=== PATIENT | male | born 1960 | race Caucasian/White ===

== ENCOUNTER → 2018-05-09 09:19 | Outpatient (CLI) | payer BC ==
[~2018-05-09 09:19] MED LIST: BAYER CHEWABLE81 MG PO; COREG6.25 MG PO; IBUPROFEN200 MG PO; LASIX40 MG PO; OMEPRAZOLE40 MG PO; VOLTAREN100 MG PO
[2018-05-23 11:55] VITALS: BMI 31.9
== END | disposition home or self-care (01) ==
LOC: D.HCCARDIO 09:19
DX: I25.119 Atherosclerotic heart disease of native coronary artery with unspecified angina pectoris (principal)

== ENCOUNTER 2018-05-23 11:21 | Outpatient (CLI) | payer BC ==
[~2018-05-23] VITALS: Ht 182.9 cm; Wt 106.8 kg
--- NOTE | ~2018-05-23 | HEMODYNAMI ---
PATIENT:ESTEPHANIA GOETZ MEDICAL RECORD: [id number] : 56 LOCATION:[facility] ADMISSION DATE: 05/23/18 Generatedon:05/23/201813:41 Patient name: ESTEPHANIA GOETZ Patient #: [id number] SSN: : 1960 Date of study: 05/23/2018 Page: Of Hemodynamic Procedure Report Patient Data Patient Demographics Procedure consent was obtained First Name: ESTEPHANIA Gender: Male Last Name: RANDY : 1960 Patient #: [id number] Age: 58 year(s) Race: Unknown Additional ID: [id number] Contact details [address]: [address] [place] [address] State: [place] City: [place] Zip code: [address] Past Medical History Allergies Allergen Reaction Date Comments Reported Penicillins 05/23/2018 Admission Admission Data Admission Date: 05/23/2018 Admission Time: 11:21 Admit Source: Other Lab Results Lab Result Date: 05/23/2018 Lab Result Time: 11:50 Biochemistry Name Units Result Min Max BUN mg/dl 20 --(----)*- 7 18 Creatinine mg/dl 1 --(--*-)-- 0.6 1.3 CBC Name Units Result Min Max Hematocrit % 45.2 --(-*--)-- 42 54 Hemoglobin g/dl 15.6 --(--*-)-- 13.5 17.5 Procedure Procedure Types Cath Procedure Diagnostic Procedure LHC LHC w/Coronaries Procedure Description Procedure Date Procedure Date: 05/23/2018 Procedure Start Time: 13:32 Procedure End Time: 13:41 Procedure Staff Name Function Robert Main MD Performing Physician Tiana Franco RT Monitor Salbador Lord RT Scrub Abdulkadir Skelton RN Nurse Douglas Pressley RN Hotel Reservationist Procedure Data Cath Procedure Fluoroscopy Diagnostic fluoroscopy Total fluoroscopy Time: 1.3 time: 1.3 min min Diagnostic fluoroscopy Total fluoroscopy dose: 573 dose: 573 mGy mGy Contrast Material Contrast Material Type Amount (ml) Isovue 300 46 Entry Location Entry Primary Successful Side Size Upsize Upsize Entry Closure [place] ccessful Closure Location (Fr) 1 (Fr) 2 (Fr) Remarks Device Remarks Radial Right 6 Fr Mechanical artery Short Compression Estimated blood loss: 5 ml Diagnostic catheters Device Type Used For End Catheter Placement DIAGNOSTIC Macario 110cm LV Angiography 5Fr catheter ([id number]) DIAGNOSTIC Macario 110cm Right Coronary 5Fr catheter ([id number]) Angiography Procedure Complications No complications Procedure Medications Medication Administration Route Dosage Oxygen etCO2 Nasal cannula 2 l/min Lidocaine 2% added to field 20 Heparin Flush Bag added to field 2 bags (1000units/500ml NS) 0.9% NaCl I.V. 100 ml/hr Radial Cocktail I.A. 1 syringe (Verapomil 2mg/Nitro 400mcg/Heparin 1500units) Versed I.V. 1 mg Fentanyl I.V. 50 mcg Versed I.V. 1 mg Fentanyl I.V. 50 mcg Hemodynamics Rest HGB: 15.6 (g/dl) Heart Rate: 65 (bpm) Pressure Samples Time Site Value (mmHg) Purpose Heart Use Rate(bpm) 13:34 LV 85/3,9 EDP 82 13:35 AO 77/52(61) Pullback 86 13:35 LV 96/2,9 Pullback 86 Gradients Valve Time Site 1 Site 2 Mean SEP/DFP Peak To Heart Use (mmHg) (sec/min) Peak Rate (mmHg) (bpm) Aortic 13:35 LV AO 10 21 19 86 96/2,9 77/52(61) Calculations Valve P-P Mean Valve Index Valve Source Name Gradient Area Flow (cm2) Aortic 19 10 19 10 Snapshots Pre Cath Intra NCS Post Cath Vital Signs Time Heart Resp SPO2 etCO2 NIBP (mmHg) Rhythm Pain Sedation Rate (ipm) (%) (mmHg) Status Level (bpm) 13:15:37 68 18 97 0 131/89(106) NSR 0 (11) 10(A) , No pain 13:19:49 70 19 96 38.6 143/80(93) NSR 0 (11) 10(A) , No pain 13:24:03 75 14 96 37.9 130/75(93) NSR 0 (11) 10(A) , No pain 13:28:15 77 18 95 36.3 118/78(90) NSR 0 (11) 10(A) , No pain 13:32:22 66 14 95 37.1 117/76(96) NSR 0 (11) 9(A) , No pain 13:36:34 83 15 94 36.3 109/61(87) NSR 0 (11) 9(A) , No pain 13:40:42 83 14 95 34 113/69(94) NSR 0 (11) 10(A) , No pain Medications Time Medication Route Dose Verified Delivered Reason Notes Effectiveness by by 13:13:06 Oxygen etCO2 2 l/min Robert Buffie used for Nasal Jose David Skelton RN procedure cannula 13:13:12 Lidocaine 2% added 20ml Robert Robert for local to vial Jose David Main MD anesthetic field 13:13:18 Heparin Flush added 2 bags Robert Robert used for Bag to Jose David Main MD procedure (1000units/500ml field NS) 13:13:27 0.9% NaCl I.V. 100 Robert Buffie Per ml/hr Jose David Skelton RN physician 13:24:01 Versed I.V. 1 mg Robert Buffie for sedation Jose David Skelton RN 13:24:07 Fentanyl I.V. 50 mcg Robert Buffie for sedation Jose David Skelton RN 13:26:54 Versed I.V. 1 mg Robert Buffie for sedation Jose David Skelton RN 13:26:58 Fentanyl I.V. 50 mcg Robert Buffie for sedation Jose David Skelton RN 13:33:45 Radial Cocktail I.A. 1 Robert Robert for (Verapomil syringe Jose David Main MD vasodilation 2mg/Nitro 400mcg/Heparin 1500units) Procedure Log Time Note 13:02:28 Informed consent obtained and on chart 13:02:31 Admit Source: Other 13:02:53 Diagnostic Cath status Elective 13:02:55 Douglas Pressley RN sent for patient. Start room use. 13:02:55 Time tracking: Regular hours (M-F 7:00 - 5:00) 13:03:00 Plan of Care:Hemodynamics will remain stable., Cardiac rhythm will remain stable., Comfort level will be maintained., Respiratory function will remain adequate., Patient/ family verbilizes understanding of procedure., Procedure tolerated without complication., Recovers from procedure without complications.. 13:04:40 Lab Result : BUN 20 mg/dl 13::40 Lab Result : Creatinine 1 mg/dl 13::41 Lab Result : Hemoglobin 15.6 g/dl 13::41 Lab Result : Hematocrit 45.2 % 13::43 Lab results completed and on chart. 13:04:49 H&P Date Dictated: 05/23/2018 New H&P dictated by physician.. 13:09:36 Patient received from Pre/Post Procedure Room to CCL 2 Alert and oriented. Tansferred to table in Supine position. 13:09:37 Warm blankets applied, and jose hugger turned on for patient comfort. 13:09:37 Correct patient and procedure confirmed by team. 13:09:38 ECG and BP/O2 sat monitors applied to patient. 13:09:39 Full Disclosure recording started 13:13:06 Oxygen 2 l/min etCO2 Nasal cannula was administered by Abdulkadir Skelton RN; used for procedure; 13:13:12 Lidocaine 2% 20ml vial added to field was administered by Robert Main MD; for local anesthetic; 13:13:18 Heparin Flush Bag (1000units/500ml NS) 2 bags added to field was administered by Robert Main MD; used for procedure; 13:13:27 0.9% NaCl 100 ml/hr I.V. was administered by Abdulkadir Skelton RN; Per physician; 13:14:27 Vital chart was started 13:14:39 Baseline sample Acquired. 13:21:35 Rhythm: sinus rhythm 13:21:39 Pre-procedure instructions explained to patient. 13:21:40 Pre-op teaching completed and patient verbalized understanding. 13:21:43 Family in patients room. 13:21:45 Patient NPO since Midnight. 13:21:52 Patient allergic to Penicillins 13:21:55 Is the patient allergic to Iodine/contrast media? No. 13:21:56 Is patient on blood thinner?No 13:22:13 ACC The patient was administered the following blood thiners within the last 24 hours: ACCAspirin 13:22:16 Patient diabetic? No. 13:22:18 Previous problem with sedation/anesthesia? No ? 13:22:19 Snore? Yes 13:22:20 Sleep apnea? No 13:22:21 Deviated septum? No 13:22:22 Opens mouth fully? Yes 13:22:23 Sticks out tongue? Yes 13:22:25 Airway obstruction? No ? 13:22:26 Dentures? No ? 13:22:28 Pre procedure: right dorsailis pedis pulse 2+ Normal; easily identifiable; not easily obliterated 13:22:31 Modified Randy's test Ulnar < 7 seconds 13:22:32 Patient pain scale 0/10 ?. 13:22:38 IV patent on arrival in left forearm with 0.9% NaCl at [facility]. 13:22:45 Right Radial & Right Groin area was prepped with chlora-prep and draped in sterile fashion 13:22:46 Alarms reviewed by R. N. 13:22:46 Sharps counted by scrub and verified by R.N. 13:22:50 Use device set Radial Dx or PCI 13:22:51 ACIST Syringe (10222) opened to sterile field. 13:22:51 Medline Cath Pack ([id number]) opened to sterile field. 13:22:52 Bag Decanter (2002S) opened to sterile field. 13:22:52 DIAGNOSTIC WIRE .035 260cm J wire (208869) opened to sterile field. 13:22:53 ACIST Hand Control (37936) opened to sterile field. 13:22:53 ACIST Manifold (01016) opened to sterile field. 13:22:56 MBrace Wrist Support ([id number]) opened to sterile field. 13:22:57 SHEATH 6FR Slender (02-3980) opened to sterile field. 13:23:34 Final Timeout: patient, procedure, and site verified with staff and physician. All members of the team are in agreement. 13:23:37 Right Radial site verified by team. 13:23:40 Physical assessment completed. ASA score P 2 - A patient with mild systemic disease as per Robert Main MD. 13:23:43 Sedation plan: IV Moderate Sedation Medication:Versed, Fentanyl 13:24:01 Versed 1 mg I.V. was administered by Abdulkadir Skelton RN; for sedation; 13:24:07 Fentanyl 50 mcg I.V. was administered by Abdulkadir Skelton RN; for sedation; 13::54 Versed 1 mg I.V. was administered by Abdulkadir Skelton RN; for sedation; 13:26:57 Zero performed for pressure channel P1 13::58 Fentanyl 50 mcg I.V. was administered by Abdulkadir Skelton RN; for sedation; 13:32:09 Procedure started. 13:32:14 Local anesthetic to right radial artery with Lidocaine 2% by Robert Main MD.INITIAL ACCESS ONLY 13:32:53 A 6 Fr Short sheath was inserted into the Right Radial artery 13:33:45 Radial Cocktail (Verapomil 2mg/Nitro 400mcg/Heparin 1500units) 1 syringe I.A. was administered by Robert Main MD; for vasodilation; 13:33:52 A DIAGNOSTIC Macario 110cm 5Fr catheter ([id number]) was advanced over the wire and used for LV Angiography. 13:34:53 LV gram done using ESCOBEDO 13::56 Injector settings: Ml/sec: 5, Volume: 15, 13:34:57 LV hemodynamics recorded. 13:35:04 EF : 55 % 13:35:44 A DIAGNOSTIC Macario 110cm 5Fr catheter ([id number]) was advanced over the wire and used for Right Coronary Angiography. 13:37:56 Catheter removed. 13:38:04 Sheath removed intact; hemostasis achieved with Mechanical Compression to the Right Radial artery. 13:38:07 Procedure ended.(Physican Out) 13:38:30 Fluoroscopy time 01.30 minutes. 13:38:47 Fluoroscopy dose: 573 mGy 13:38:47 Flurop Dose total: 573 13:38:49 Contrast amount:Isovue 300 46ml. 13:38:58 Sharps counted by scrub and verified by R.N. 13:39:01 TR band inflated with 8cc of air. 13:39:02 Insertion/operative site no bleeding no hematoma. 13:39:09 Post right radial artery:stable, clean and dry 13:39:10 Post Procedure Pulses reassessed and unchanged 13:39:13 Post-procedure physical assessment completed. ASA score P 2 - A patient with mild systemic disease as per Robert Main MD. 13:39:15 Post procedure rhythm: unchanged. 13:39:22 Estimated blood loss: 5 ml 13:39:23 Post procedure instruction explained to patient.Patient verbalizes understanding. 13:39:24 Patient needs reinforcement of post procedure teaching. 13:39:43 Procedure Complication : No complications 13:39:46 See physician's report for complete and final results. 13:40:06 TR BAND Standard ([id number]) opened to sterile field. 13:40:23 Procedure and supply charges have been captured, reviewed, submitted and are correct. 13:40:58 Vital chart was stopped 13:41:00 Report given to Pre/Post Procedure Room. 13:41:03 Patient transfered to Pre/Post Procedure Room with Stretcher. 13:41:09 Procedure ended. 13:41:09 Full Disclosure recording stopped 13:41:12 End room use (Document Last) Device Usage Item Name Manufacture Quantity Catalog Hospital Part Current Minimal Lot# / Number Charge Number Stock Stock Serial# Code ACIST Acist 1 [id number] [id number] 151258 699501 20 Syringe Medical (79369) Systems Inc Medline Medline 1 [id number] 389146 78551 755212 5 Cath Pack ([id number]) Bag Microtek 1 2001S 211578 37393 985711 5 Decanter Medical Inc. () DIAGNOSTIC [facility] [place] 1 803121 617920 274919 379929 30 WIRE .035 260cm J wire (507303) ACIST Hand Acist 1 96873 331404 935240 396393 5 Control Medical (51154) Systems Inc ACIST Acist 1 65736 316066 949511 029191 5 Manifold Medical (98869) Systems Inc MBrace Advanced 1 140-0250-00 482878 81489 131217 5 Wrist Vascular Support Dynamics ([id number]) SHEATH 6FR Terumo 1 [id number] 177013 766897 651034 40 Slender (801060) DIAGNOSTIC Terumo 1 40-7204 384653 021633 488031 5 Macario 110cm 5Fr catheter (777197) TR BAND Terumo 1 [id number] 788871 923239 285185 40 Standard ([id number]) Signature Audit [place] Stage Time Signature Unsigned Intra-Procedure 05/23/2018 Tiana 1:41:35 PM Counts RT(R) Signatures Monitor : Tiana Signature : Counts RT Date : Time : [facility] [address] [place] [address]
[2018-05-23] MEDS ORDERED: COREG6.25 MG PO (11:39)
[2018-05-23] MEDS ORDERED: OMEPRAZOLE40 MG PO (11:39)
[2018-05-23] MEDS ORDERED: LASIX40 MG PO (11:39)
[2018-05-23] MEDS ORDERED: VOLTAREN100 MG PO (11:40)
[2018-05-23] MEDS ORDERED: BAYER CHEWABLE81 MG PO (11:40)
[2018-05-23] MEDS ORDERED: IBUPROFEN200 MG PO (11:41)
[2018-05-23 11:55] VITALS: BP 130/89; Ht 182.9 cm; Wt 106.8 kg
[2018-05-23 12:07] LABS: BASOPHILS 0.7 % (0-2); EOSINOPHILS 4.9 % (0-7); HEMATOCRIT 45.2 % (42.0-54.0); HEMOGLOBIN 15.6 g/dL (13.5-17.5); IMMATURE GRANULOCYTES 0.2 % (0-5); LYMPHOCYTES 26.2 % (15-50); MCH 31.5 pg (26.0-34.0); MCHC 34.5 g/dL (31.0-37.0); MCV 91.1 fL (80.0-100.0); MEAN PLATELET VOLUME 10.8 fL (7.4-10.4); MONOCYTES 8.2 % (2-11); NEUTROPHILS 59.8 % (40-80); PLATELET COUNT 206 10x3/uL (130-400); RBC 4.96 10x6/uL (4.20-6.10); RDW 13.3 % (11.5-14.5); WBC 9.2 10x3/uL (4.8-10.8)
[2018-05-23 12:16] LABS: CALC OSMOLALITY 280 mosm/kg (275-300); CALCIUM 9.1 mg/dL (8.5-10.1); CHLORIDE - SERUM 103 mmol/L (98-107); GLUCOSE 98 mg/dL (74-106); POTASSIUM - SERUM 4.4 mmol/L (3.5-5.1); SODIUM 139 mmol/L (136-145); UREA NITROGEN 20 mg/dL (7-18); eGFR NON AFRICAN AMERICAN 81 mL/min (90-120)
== END 2018-05-23 16:10 ==
LOC: D.CATH 11:21
PROVIDERS: Internal Medicine Cardiovascular Disease
DX: I25.119 Atherosclerotic heart disease of native coronary artery with unspecified angina pectoris (principal); I25.82 Chronic total occlusion of coronary artery; I10 Essential (primary) hypertension; Z86.73 Personal history of transient ischemic attack (TIA), and cerebral infarction without residual deficits; F17.200 Nicotine dependence, unspecified, uncomplicated; K21.9 Gastro-esophageal reflux disease without esophagitis; Z79.82 Long term (current) use of aspirin; Z79.1 Long term (current) use of non-steroidal anti-inflammatories (NSAID); Z79.899 Other long term (current) drug therapy; Z88.0 Allergy status to penicillin; Z01.812 Encounter for preprocedural laboratory examination

== ENCOUNTER → 2018-06-09 19:14 | Outpatient (CLI) | payer BC ==
[2018-05-23 11:55] VITALS: BMI 31.9
[2018-06-09 20:09] LABS: T4 THYROXIN - FREE 0.97 ng/dL (0.76-1.46); THYROID STIMULATING HORMONE 1.75 uIU/mL (0.36-3.74)
== END | disposition home or self-care (01) ==
LOC: D.LABREF 19:14
PROVIDERS: Internal Medicine Cardiovascular Disease
DX: R63.5 Abnormal weight gain (principal); R53.83 Other fatigue